=== PATIENT | female | born 1985 | race Caucasian/White ===

== ENCOUNTER → 2016-11-06 | Outpatient (CLI) | payer OTHER ==
--- NOTE | 2016-11-06 15:14 | US ---
EXAMINATION TYPE: US thyroid st tissue head/neck DATE OF EXAM: 11/06/2016 2:45 PM COMPARISON: NONE CLINICAL HISTORY: R22.0 Swelling in neck. Pt states neck swelling felt on Dr's examination GLAND SIZE: Right Lobe: 5.1 x 1.4 x 1.7 cm Overall Parenchyma: homogenous Left Lobe: 4.4 x 1.3 x 1.3 cm Overall Parenchyma: homogeneous Isthmus Thickness: 0.2 cm NODULES Small, sub-centimeter cyst right lobe, otherwise thyroid appeared unremarkable Bilateral neck scanned, no evidence of lymphadenopathy. IMPRESSION: 1. Subcentimeter cyst. No suspicious nodules are evident.
== END | disposition home or self-care (01) ==
LOC: RADUSWWP 14:32
PROVIDERS: ATTEND Internal Medicine
DX: E04.1 Nontoxic single thyroid nodule (principal)
CPT/HCPCS: 76536

== ENCOUNTER → 2021-02-28 | Outpatient (CLI) | payer BC, OTHER ==
--- NOTE | 2021-02-28 15:04 | XR ---
EXAMINATION TYPE: XR chest 2V DATE OF EXAM: 02/28/2021 COMPARISON: NONE HISTORY: Chest pain TECHNIQUE: Frontal and lateral views of the chest are obtained. FINDINGS: There is no focal air space opacity. No evidence for pneumothorax. No pleural effusion. The cardiac silhouette size is within normal limits. The osseous structures are grossly intact. IMPRESSION: 1. No acute cardiopulmonary process.
== END | disposition home or self-care (01) ==
LOC: RADXRMAIN 14:33
PROVIDERS: ATTEND Internal Medicine
DX: R07.9 Chest pain, unspecified (principal)
CPT/HCPCS: 71046

== ENCOUNTER → 2023-08-03 | Outpatient (CLI) | payer BC, OTHER ==
[2023-08-03 14:04] VITALS: BP 128/88; PULSE 75; RESP 16; TEMP 98.5
--- NOTE | 2023-08-03 14:58 | P.HPOB ---
History of Present Illness H&P Date: 08/03/23 Chief Complaint: The patient is here for her routine gynecologic exam. This is a 37-year-old 011 with an LMP of 08/01/2023. The patient is here to establish with this office. She has been a since 2020. She has had 3 sexual partners since then. She was last sexually active 1-2 months ago. She denies any STD symptoms including discharge, odor or new genital lesions. She has had a history of hidradenitis suppurativa for many years. She is requesting STD testing. Review of Systems The patient has lost 50 pounds over the last year. This is been with diet, exercise and Adipex. She denies respiratory, cardiac, or G.I. problems. Past Medical History Past Medical History: Hypertension Additional Past Medical History / Comment(s): Scoliosis, muscle spasms, Nasal HSV type I, hidradenitis suppurativa. PAST [employer] WORKER HISTORY: She has no history of STDs. History of Any Multi-Drug Resistant Organisms: None Reported Past Surgical History: Section Additional Past Surgical History / Comment(s): Incision and drainage of a cyst off of her arm. Ankle surgery. section 1. Past Anesthesia/Blood Transfusion Reactions: No Reported Reaction Past Psychological History: Anxiety Additional Psychological History / Comment(s): PT TOOK XANAX A FEW YEARS AGO Smoking Status: Current every day smoker (Half a pack of cigarettes per day.) Past Alcohol Use History: None Reported Past Drug Use History: Marijuana (Admits to rare marijuana use.) Additional History: She has been a since 2020. She is currently not seeing anybody at this time. 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 - Past Family History Mother Family Medical History: No Reported History Father Family Medical History: No Reported History Additional Family Medical History / Comment(s): Paternal grandmother had lung cancer and paternal grandfather had pancreatic cancer. Medications and Allergies Home Medications Medication Instructions Recorded Confirmed Type Ibuprofen [Motrin] 600 mg PO Q6HR PRN #30 tab 01/16/14 08/03/23 Rx Baclofen [Lioresal] 20 mg PO DIRECTED 08/03/23 08/03/23 History Doxycycline [Vibramycin] 50 mg PO DAILY 08/03/23 08/03/23 History Loratadine [Claritin] 10 mg PO DAILY 08/03/23 08/03/23 History Phentermine HCl [Adipex P] 1 cap PO DAILY 08/03/23 08/03/23 History diazePAM [Valium] 10 mg PO BID 08/03/23 08/03/23 History hydroCHLOROthiazide 12.5 mg PO DAILY 08/03/23 08/03/23 History valACYclovir HCL [Valtrex] 500 mg PO DIRECTED 08/03/23 08/03/23 History Allergies Allergy/AdvReac Type Severity Reaction Status Date / Time No Known Allergies Allergy Verified 08/03/23 13:37 Exam Vital Signs Temp Pulse Resp BP Pulse Ox 08/03/23 13:42 98.5 F 75 16 128/88 100 Intake and Output 08/02/23 08/03/23 08/03/23 22:59 06:59 14:59 Other: Weight 69.853 kg Height 5 feet 7 inches, weight 154 pounds, BMI 24.1. This is a well-developed well-nourished female who is alert and oriented times 3 in no acute distress. HEENT: Within normal limits. NECK: Supple without mass or thyromegaly. CHEST AND LUNGS: Clear to auscultation. HEART: Regular rate and rhythm. BREASTS: Are without mass or discharge. AXILLARY EXAM: Negative for adenopathy. BACK: Negative for CVA tenderness. ABDOMEN: Soft, nontender, without palpable masses. PELVIC EXAM: Normal external genitalia with shaved mons pubis. There is small scars in the area of the mons pubis that she states her previous lesions from her hidradenitis. Cervix and vagina appear normal. There is no unusual discharge. There is no evidence of prolapse. The uterus is midposition, n ongravid size and nontender. There are no palpable adnexal masses or tenderness. RECTAL EXAM: Refused by the patient. EXTREMITIES: Nontender. IMPRESSION: 1. 37-year-old female with normal gynecologic exam. 2. Patient is requesting STD testing. A previous partner within the past year has indicated that he was told he had some type of STD, but she does not know the type of STD that was. She is without symptoms. PLAN: 1. Pap smear cotest was performed. 2. Self breast awareness was discussed with the patient. We have also discussed symptoms associated with inflammatory breast cancer. 3. Screening mammograms to start at age 40. 4. GC and chlamydia testing were obtained from the cervix. Trichomonas testing was obtained from the vagina. Blood STD testing will include HIV, RPR, hepa titis B surface antigen, and hepatitis C antibody. She understands that certain types of STD testing such as HSV testing may not be helpful unless she is having an outbreak. She also understands that certain tests may not return positive within the first 4-8 weeks and she should consider retesting if she has had recent relations that she is concerned about STDs. 5. STD prevention was discussed. I have stressed the importance of limiting sexual partners and I have recommended that she use condoms if she is sexually active. 6.Osteoporosis prevention was discussed. I have stressed the importance of adequate calcium, vitamin D and regular exercise. Recommended amounts of calcium and vitamin D were also discussed. 7. She was advised to return in one year for her annual well woman exam and as needed.
[2023-08-03 18:59] LABS: Hepatitis B Surface Antigen Nonreactive; Hepatitis C IgG Antibody Nonreactive
[2023-08-03 22:29] LABS: HIV 2 AB Non-Reactive (Non-Reactive); HIV AB P24 Non-Reactive (Non-Reactive); HIV P24 AG Non-Reactive (Non-Reactive)
[2023-08-04 15:32] LABS: C. trachomatis,PCR Negative (Negative); N. gonorrhoeae,PCR Negative (Negative)
== END ==
LOC: WWCWWP 13:29
PROVIDERS: ATTEND Obstetrics & Gynecology
DX: Z11.3 Encounter for screening for infections with a predominantly sexual mode of transmission (principal); I10 Essential (primary) hypertension; F41.9 Anxiety disorder, unspecified; F12.90 Cannabis use, unspecified, uncomplicated; F17.210 Nicotine dependence, cigarettes, uncomplicated; B00.9 Herpesviral infection, unspecified; Z78.0 Asymptomatic menopausal state; Z87.39 Personal history of other diseases of the musculoskeletal system and connective tissue; Z86.19 Personal history of other infectious and parasitic diseases; Z87.2 Personal history of diseases of the skin and subcutaneous tissue; Z79.899 Other long term (current) drug therapy
CPT/HCPCS: 86780; 86803; 87340; 87390; 87491; 87591